=== PATIENT | male | born 1965 | race Caucasian/White ===

== ENCOUNTER → 2017-11-08 | Outpatient (CLI) | payer BC | LOC: COL.RAD 07:25 | DX: K21.9 Gastro-esophageal reflux disease without esophagitis (principal); R10.11 Right upper quadrant pain ==

== ENCOUNTER 2024-01-29 07:06 | Emergency (ER) | payer BC ==
[~2024-01-29] VITALS: Ht 182.9 cm; Wt 93.2 kg
[2024-01-29 07:13] VITALS: TEMP 97.3
[2024-01-29] MEDS ORDERED: NS 500 ML IV ONE (07:30)
[2024-01-29] MEDS ORDERED: LORazepam 2 MG/ML 1 ML VIAL IV ONE ×2 (07:30→09:30)
[2024-01-29 08:11] LABS: ALANINE AMINOTRANSFERASE 32 U/L (0-55); ALBUMIN 4.2 g/dL (3.5-5.0); ALKALINE PHOSPHATASE 59 U/L (40-150); ANION GAP 10 mmol/L (7-16); AST,SGOT 26 U/L (5-34); BILIRUBIN,TOTAL 0.5 mg/dL (0.2-1.2); BLOOD UREA NITROGEN 20 mg/dL (8-26); CALCIUM 9.4 mg/dL (8.4-10.2); CHLORIDE 110 mEq/L (98-107); CREATININE, serum 0.98 mg/dL (0.72-1.25); GLUCOSE 124 mg/dL (70-99); POTASSIUM 4.3 mEq/L (3.5-4.5); SODIUM 140 mEq/L (136-145); TOTAL PROTEIN 7.2 g/dl (6.2-8.1)
[2024-01-29 08:18] LABS: TROPONIN-I < 0.010 ng/mL (0.00-0.033)
[2024-01-29] MEDS ORDERED: ATARAX 25MG25 MG/TAB PO (08:47)
[2024-01-29 09:30] VITALS: BP 143/98; PULSE 60
== END 2024-01-29 09:30 | disposition home or self-care (01) ==
LOC: COL.ER 07:06
PROVIDERS: Emergency Medicine
DX: F41.0 Panic disorder [episodic paroxysmal anxiety] (principal)
CPT/HCPCS: J2060; J7040